=== PATIENT | male | born 1965 | race African-American/Black ===

== ENCOUNTER 2022-04-24 09:51 | Outpatient (CLI) | payer BC | END 2022-04-24 09:52 | disposition home or self-care (01) | LOC: CSHLAB 09:51 | PROVIDERS: ATTEND Internal Medicine Gastroenterology | DX: Z20.822 Contact with and (suspected) exposure to COVID-19 (principal); Z12.11 Encounter for screening for malignant neoplasm of colon | CPT/HCPCS: U0003; U0005 ==

== ENCOUNTER 2022-04-27 08:24 | Day surgery (SDC) | payer BC ==
[2022-04-25 14:45] VITALS: BMI 32.7
[2022-04-27] MEDS ORDERED: Lidocaine 1% MPF 2 ML VIAL ONE (10:06)
[2022-04-27] MEDS ORDERED: Lidocaine 1% PF 5 ML VIAL ONE (10:21)
[2022-04-27] MEDS ORDERED: PROPOFOL 40 ML ONE (10:21)
== END 2022-04-27 11:39 | disposition home or self-care (01) ==
LOC: CSHSDC 08:24
PROVIDERS: ATTEND Internal Medicine Gastroenterology
PROC: 0DBK8ZX Excision of Ascending Colon, Via Natural or Artificial Opening Endoscopic, Diagnostic (ICD-10-PCS; principal; 2022-04-27)
DX: Z12.11 Encounter for screening for malignant neoplasm of colon (principal); K63.5 Polyp of colon; K57.30 Diverticulosis of large intestine without perforation or abscess without bleeding; K64.9 Unspecified hemorrhoids; I10 Essential (primary) hypertension; E11.9 Type 2 diabetes mellitus without complications; G89.29 Other chronic pain; M54.9 Dorsalgia, unspecified; F17.210 Nicotine dependence, cigarettes, uncomplicated; E78.5 Hyperlipidemia, unspecified; Z79.84 Long term (current) use of oral hypoglycemic drugs; Z79.899 Other long term (current) drug therapy
CPT/HCPCS: 88305; J2704